=== PATIENT | male | born 1995 | race Caucasian/White ===

== ENCOUNTER 2017-06-28 20:49 | Emergency (ER) | payer OTHER ==
[2017-06-28 21:00] VITALS: BP 135/69
--- NOTE | 2017-06-30 17:12 | ED ---
Progress - Progress Note Progress Note: CALL PT. G/C (-). IF WORSE GO TO ER. Course/Dx - Diagnoses Provider Diagnoses: STD (sexually transmitted disease)
--- NOTE | 2017-07-03 08:37 | UC ---
Complaint Male HPI - HPI Summary HPI Summary: uncircumcised male has irritating erythema on glans of penis---no pain with urination, - History of Current Complaint Hx Obtained From: Patient Onset/Duration: Sudden Onset, Lasting Days Timing: Constant Severity Initially: Mild Severity Currently: Mild Pain Intensity: 0 Pain Scale Used: 0-10 Numeric Location: Penis Aggravating Factor(s): Nothing Alleviating Factor(s): Nothing Associated Signs And Symptoms: Negative: Hematuria, Dysuria, Nausea, Penile Swelling, Penile Discharge <Radha Johnson - Last Filed: 07/03/17 09:28> <Tamiko Bee - Last Filed: 07/07/17 17:49> - History of Current Complaint Chief Complaint: UCGU Stated Complaint: GENITAL REDNESS Time Seen by Provider: 06/28/17 21:03 - Allergies/Home Medications Allergies/Adverse Reactions: Allergies Allergy/AdvReac Type Severity Reaction Status Date / Time No Known Allergies Allergy Verified 06/28/17 20:55 Home Medications: Home Medications Adapalene-Benzoyl Peroxide [Epiduo Forte 0.3-2.5 %] 1 gel EX DAILY 06/28/17 [ History Confirmed 06/28/17] Tenofovir/Emtricitabine(*) [Truvada*] 1 tab PO DAILY 06/28/17 [History Confirmed 06/28/17] PMH/Surg Hx/FS Hx/Imm Hx Previously Healthy: Yes - Surgical History Surgical History: Yes Surgery Procedure, Year, and Place: WISDOM TEETH. TOE NAIL REMOVED. ENDOSCOPY - Family History Known Family History: Positive: None - Social History Occupation: Student Lives: Alone Alcohol Use: Occasionally Substance Use Type: None Smoking Status (MU): Never Smoked Tobacco <Radha Johnson - Last Filed: 07/03/17 09:28> Review of Systems Constitutional: Negative Skin: Rash - glans of penis Eyes: Negative ENT: Negative Respiratory: Negative Cardiovascular: Negative Gastrointestinal: Negative Genitourinary: Negative Motor: Negative Neurovascular: Negative Musculoskeletal: Negative Neurological: Negative Psychological: Negative All Other Systems Reviewed And Are Negative: Yes <Radha Johnson - Last Filed: 07/03/17 09:28> Physical Exam Triage Information Reviewed: Yes Appearance: Well-Appearing, No Pain Distress, Well-Nourished Vital Signs: Initial Vital Signs Temp 98 F 06/28/17 20:52 Pulse 55 06/28/17 20:52 Resp 06/28/17 20:52 BP 135/69 06/28/17 20:52 Vital Signs Reviewed: Yes Eye Exam: Normal Eyes: Positive: Conjunctiva Clear ENT Exam: Normal ENT: Positive: Normal ENT inspection, Hearing grossly normal. Negative: Nasal congestion, Nasal drainage, Trismus, Muffled/hoarse voice Dental Exam: Normal Neck exam: Normal Neck: Positive: Supple, Nontender Respiratory Exam: Normal Respiratory: Positive: Chest non-tender, No respiratory distress, No accessory muscle use Cardiovascular Exam: Normal Cardiovascular: Positive: RRR, Pulses Normal, Brisk Capillary Refill Musculoskeletal Exam: Normal Musculoskeletal: Positive: Strength Intact, ROM Intact, No Edema Neurological Exam: Normal Neurological: Positive: Alert, Muscle Tone Normal Psychological Exam: Normal Skin: Positive: rashes - red no vesicles <Radha Johnson - Last Filed: 07/03/17 09:28> Vital Signs: Initial Vital Signs Temp 98 F 06/28/17 20:52 Pulse 55 06/28/17 20:52 Resp 06/28/17 20:52 BP 135/69 06/28/17 20:52 <Tamiko Bee - Last Filed: 07/07/17 17:49> Complaint Male Course/Dx - Course Course Of Treatment: clotrimazole cream, follow with pcp - Differential Dx/Diagnosis Differential Diagnosis/HQI/PQRI: Urinary Tract Infection, Other - balititis Provider Diagnoses: balitis <Radha Johnson - Last Filed: 07/03/17 09:28> Discharge <Radha Johnson - Last Filed: 07/03/17 09:28> <Tamiko Bee - Last Filed: 07/07/17 17:49> - Discharge Plan Condition: Stable Disposition: HOME Prescriptions: Clotrimazole 1% CREAM* [Clotrimazole 1%*] 1 applic TOPICAL BID #45 gm Referrals: [facility] [Outside] - If Needed Attestation Statement User Type: Provider - I was available for consult. This patient was seen by the HEIN. The patient was not presented to, seen by, or examined by me. -Ruth <Tamiko Bee - Last Filed: 07/07/17 17:49>
== END 2017-06-28 21:28 | disposition home or self-care (01) ==
LOC: UCEAST 20:49
DX: N48.1 Balanitis (principal)
CPT/HCPCS: 81003; 87491; 87591; 99212; G0463

== ENCOUNTER 2017-07-18 01:47 | Emergency (ER) | payer OTHER ==
[2017-07-18 06:19] VITALS: BP 99/63
--- NOTE | 2017-07-30 15:36 | ED ---
Radha Alcaraz Thomas, scribed for Jose Luis Arciniega MD on 07/18/17 at 0319 . Altered Mental Status - HPI Summary HPI Summary: LEVEL 5 CAVEAT: HPI LIMITED DUE TO UNCONSCIOUS PATIENT The patient is a 22 y/o M BIBA to the ED. He is unconscious. Per nursing, he was drinking excessively earlier tonight. Per nursing, he was found passed out in the back of the cab after he was taken to his residence. He is rousable to painful stimulus and his airway is protected. - History Of Current Complaint Chief Complaint: EDSubstanceAbuse Stated Complaint: ALCOHOL CONSUMPTION Time Seen by Provider: 07/18/17 01:56 Hx Obtained From: Patient Hx From Patient Unobtainable Due To: Altered Mental Status Onset/Duration: Unknown Timing: Constant Aggravating Factor(s): Unknown Alleviating Factor(s): Unknown - Allergies/Home Medications Allergies/Adverse Reactions: Allergies Allergy/AdvReac Type Severity Reaction Status Date / Time No Known Allergies Allergy Verified 06/28/17 20:55 PMH/Surg Hx/FS Hx/Imm Hx Previously Healthy: Yes - LEVEL 5 CAVEAT: PMH LIMITED DUE TO UNCONSCIOUS PATIENT Endocrine/Hematology History: Denies: Hx Diabetes Cardiovascular History: Denies: Hx Hypertension, Hx Pacemaker/ICD Musculoskeletal History: Denies: Hx Rheumatoid Arthritis, Hx Osteoporosis Sensory History: Denies: Hx Hearing Aid Psychiatric History: Denies: Hx Panic Disorder - Surgical History Surgery Procedure, Year, and Place: WISDOM TEETH. TOE NAIL REMOVED Infectious Disease History: No Infectious Disease History: Denies: Traveled Outside the [place] in Last 30 Days - Family History Known Family History: Positive: Unknown - Social History Alcohol Use: Occasionally Substance Use Type: Reports: None Smoking Status (MU): Never Smoked Tobacco Review of Systems - ROS Summary Review of Systems Summary: LEVEL 5 CAVEAT: ROS LIMITED DUE TO UNCONSCIOUS PATIENT Negative: Fever Positive: Other - POS: His airway is protected Neurological: Other - POS: unconscoius. He is rousable to painful stimuli All Other Systems Reviewed And Are Negative: No Physical Exam - Summary Physical Exam Summary: LEVEL 5 CAVEAT: PHYSICAL EXAM LIMITED DUE TO UNCONSCIOUS PATIENT Constitutional: Well-developed, Well-nourished Skin: Warm, Dry HENT: Normocephalic; Atraumatic. His airway is protected. Eyes: Conjunctiva normal Neck: Musculoskeletal ROM normal neck. (-) JVD, (-) Stridor, (-) Tracheal deviation Cardio: Rhythm regular, rate normal, Heart sounds normal; Intact distal pulses; The pedal pulses are 2+ and symmetric. Radial pulses are 2+ and symmetric. (-) Murmur Pulmonary/Chest wall: Effort normal. (-) Respiratory distress, (-) Wheezes, (-) Rales Abd: Soft, (-) Tenderness, (-) Distension, (-) Guarding, (-) Rebound Musculoskeletal: (-) Edema Lymph: (-) Cervical adenopathy Neuro: He is unconscious. He is rousable to painful stimulus. Triage Information Reviewed: Yes Vital Signs On Initial Exam: Initial Vitals Temp Pulse Resp BP Pulse Ox 98.3 F 70 16 112/69 98 07/18/17 01:53 07/18/17 01:53 07/18/17 01:53 07/18/17 01:53 07/18/17 01:53 Vital Signs Reviewed: Yes - Neel Coma Scale Coma Scale Total: 9 Diagnostics - Vital Signs Vital Signs Temp Pulse Resp BP Pulse Ox 07/18/17 01:53 98.3 F 70 16 112/69 98 - Laboratory Lab Statement: Any lab studies that have been ordered have been reviewed, and results considered in the medical decision making process. Re-Evaluation - Re-Evaluation First Eval Re-Evaluation Time: 06:03 Change: Improved Comment: The patient is ambulatory and alert. Altered Mental Statu Course/Dx - Course Assessment/Plan: The patient is a 22 y/o M BIBA to the ED. He is unconscious. Per nursing, he was drinking excessively earlier tonight. Per nursing, he was found passed out in the back of the cab after he was taken to his residence. He is rousable to painful stimulus and his airway is protected. On physical exam, the patient is protecting his airway and is rousable to painful stimulus. At 06: 03, the patient is ambulatory and alert. He is diagnosed with alcohol intoxication. He will follow up with [place] in 2-3 days. Patient is agreeable to this plan. - Diagnoses Discharge Diagnoses: Alcohol intoxication Discharge - Discharge Plan Condition: Stable Disposition: HOME Patient Education Materials: Alcohol Intoxication (ED) [facility] - 2 Days Additional Instructions: Follow up with [facility] in 2-3 days. Return to the emergency department for any changing or worsening symptoms. The documentation as recorded by the Radha maldonado Thomas accurately reflects the service I personally performed and the decisions made by , Jose Luis Arciniega MD.
== END 2017-07-18 06:19 | disposition home or self-care (01) ==
LOC: ED 01:47
DX: F10.129 Alcohol abuse with intoxication, unspecified (principal)
CPT/HCPCS: 99282